=== PATIENT | male | born 1955 | race African-American/Black ===

== ENCOUNTER → 2017-11-14 | Outpatient (CLI) | payer MEDICARE ==
[~2017-11-14] MED LIST: CATAPRES 0.1MG0.1 MG PO; CELLCEPT500 MG PO; COZAAR; CYCLOSPORINE PO; CYCLOSPORINE25 M1 PO; EFFEXOR37.5 MG PO; ELAVIL50 MG PO; LANTIS SQ; LEVAQUIN 750MG750 MG PO; METOCLOPRAMIDE10 MG PO; NORVASC5 MG PO; NOVOLOG100 U/ML SC; NOVOLOG100 U/ML SQ; PHENERGAN W/CO120 ML PO; PROGRAF1 MG PO; VIT D; ZOFRAN4 MG PO
== END ==
LOC: COL.RAD 13:15
DX: M47.812 Spondylosis without myelopathy or radiculopathy, cervical region (principal)

== ENCOUNTER → 2017-11-20 | Outpatient (CLI) | payer MEDICARE | LOC: ZCOL.LAB 16:51 | DX: E11.621 Type 2 diabetes mellitus with foot ulcer (principal) ==

== ENCOUNTER → 2018-01-24 | Outpatient (CLI) | payer MEDICARE | LOC: MHCPAIN 15:28 | DX: G89.29 Other chronic pain (principal); M54.12 Radiculopathy, cervical region; M47.812 Spondylosis without myelopathy or radiculopathy, cervical region | CPT/HCPCS: G0463 ==

== ENCOUNTER → 2018-05-23 | Outpatient (CLI) | payer MEDICARE ==
[~2018-05-23] MED LIST changes: +AUGMENTIN 250 M1 TAB PO; +CARDURA 8MG TAB8 MG PO; +CIPRO 500MG TA500 MG PO; +DILAUDID 2MG TAB2 MG PO; +FOSRENOL500 MG PO; +LANTUS100 U/ML SQ; +NORVASC 10MG10 MG PO; +PROTONIX 40MG T40 MG PO; +SENSIPAR60 MG PO; +TRUSOPT OCUMETE10 ML OU; +ZOFRAN8 MG PO
== END ==
LOC: MHCPAIN 15:18
DX: G89.29 Other chronic pain (principal); M50.90 Cervical disc disorder, unspecified, unspecified cervical region; M54.12 Radiculopathy, cervical region
CPT/HCPCS: G0463

== ENCOUNTER 2018-07-11 11:59 | Day surgery (SDC) | payer MEDICARE ==
[2006-06-23 17:41] VITALS: BP 179/100
[2018-07-11] VITALS (9 sets, daily range): BP systolic 121–157; BP diastolic 43–99; PULSE 73–96; TEMP 98.3–98.9
[~2018-07-11] VITALS: Ht 165.1 cm; Wt 85.0 kg
[~2018-07-11 11:59] MED LIST changes: +LYRICA 25MG CAP25 MG PO
[2018-07-12 01:00] VITALS: BP 160/43; PULSE 85; TEMP 99.5
[2018-07-12] MEDS ORDERED: BACTRIM 400 MG-1 TAB PO (06:49)
[2018-07-12 08:02] VITALS: BP 159/83; PULSE 90; TEMP 99.1
== END 2018-07-12 09:36 | disposition home or self-care (01) ==
LOC: SDCO 11:59 → MEDICAL 17:13 → SDCO 07-12 09:36
DX: T81.30XA Disruption of wound, unspecified, initial encounter (principal); I13.2 Hypertensive heart and chronic kidney disease with heart failure and with stage 5 chronic kidney disease, or end stage renal disease; E11.22 Type 2 diabetes mellitus with diabetic chronic kidney disease; N18.6 End stage renal disease; I50.9 Heart failure, unspecified; E11.40 Type 2 diabetes mellitus with diabetic neuropathy, unspecified; I25.2 Old myocardial infarction; G47.33 Obstructive sleep apnea (adult) (pediatric); G89.29 Other chronic pain; D64.9 Anemia, unspecified; Z99.2 Dependence on renal dialysis; Z79.4 Long term (current) use of insulin; Z88.0 Allergy status to penicillin; Z88.6 Allergy status to analgesic agent; Z88.8 Allergy status to other drugs, medicaments and biological substances; Z80.9 Family history of malignant neoplasm, unspecified; Z83.3 Family history of diabetes mellitus; Z82.49 Family history of ischemic heart disease and other diseases of the circulatory system
CPT/HCPCS: OP; J1644; J1815; J2175; J2704; J7030; P9016

== ENCOUNTER 2018-08-02 09:44 | Inpatient (IN) | payer MEDICARE ==
[~2018-08-02] VITALS: Ht 165.1 cm; Wt 84.6 kg
[~2018-08-02 09:44] MED LIST changes: +BACTRIM 400 MG-1 TAB PO
[2018-08-03] VITALS (9 sets, daily range): BP systolic 135–177; BP diastolic 38–71; PULSE 71–95; TEMP 97.6–98.4
[2018-08-03 12:36] LABS: CALCIUM 9.9 mg/dL (8.4-10.2); CREATININE, serum 3.55 mg/dL (0.66-1.25)
[2018-08-04 00:40] VITALS: BP 137/98; PULSE 93; TEMP 98.1
[2018-08-04 04:00] VITALS: BP 159/54; PULSE 93; TEMP 97.6
[2018-08-04 07:33] VITALS: BP 159/59; PULSE 102; TEMP 98.4
[2018-08-04 12:41] VITALS: BP 147/60; PULSE 101; TEMP 100
[2018-08-04 16:30] VITALS: BP 156/82; PULSE 102; TEMP 98.8
[2018-08-04 18:35] LABS: MEAN CELL VOLUME 89 fl (80.0-100.0); MEAN CORPUSCULAR HGB CONC 30 g/dl (33.0-37.0); MEAN PLATELET VOLUME 9.8 fl (7.4-10.4); PLATELET COUNT 312 K/mm3 (130-400); RED BLOOD COUNT 2.79 M/mm3 (4.20-5.60); REDCELL DISTRIBUTION WIDTH-CV 17.9 % (11.5-14.5)
[2018-08-04 18:37] LABS: HEMATOCRIT 24.8 % (42.0-52.0); HEMOGLOBIN 7.4 g/dl (13.5-18.0); MEAN CORPUSCULAR HEMOGLOBIN 27 pg (27.0-31.0)
[2018-08-04 18:49] LABS: CALCIUM 8.5 mg/dL (8.4-10.2); POTASSIUM 3.6 mmol/L (3.4-5.0)
[2018-08-04 19:04] LABS: CREATININE, serum 6.43 mg/dL (0.66-1.25)
[2018-08-04 20:22] VITALS: BP 130/50; PULSE 92; TEMP 98.4
[2018-08-05 00:38] VITALS: BP 153/41; PULSE 86; TEMP 98.3
[2018-08-05 04:10] VITALS: BP 156/49; PULSE 86; TEMP 98.4
[2018-08-05 08:48] VITALS: BP 156/57; PULSE 84; TEMP 98.7
[2018-08-05 12:04] VITALS: BP 148/58; PULSE 80; TEMP 98.7
[2018-08-05 15:54] VITALS: BP 156/49; PULSE 84; TEMP 98.1
[2018-08-05 20:54] VITALS: BP 149/51; PULSE 84; TEMP 99.2
[2018-08-06 00:28] VITALS: BP 153/62; PULSE 85; TEMP 97.7
[2018-08-06 04:18] VITALS: BP 155/57; PULSE 81; TEMP 99.5
[2018-08-06 07:52] VITALS: BP 157/58; PULSE 83; TEMP 99.1
[2018-08-06] MEDS ORDERED: BACTRIM 400 MG-1 TAB PO (10:42)
[2018-08-06 12:14] VITALS: BP 151/51; PULSE 83; TEMP 99.1
[2018-08-06 13:46] LABS: CALCIUM 8.3 mg/dL (8.4-10.2); POTASSIUM 3.7 mmol/L (3.4-5.0)
[2018-08-06 14:28] LABS: CREATININE, serum 9.65 mg/dL (0.66-1.25)
== END 2018-08-06 15:00 | disposition home health service (06) | DRG 239 ==
LOC: INPTSU 08-03 11:31 → EDSTATUS 08-03 13:00 → SDCO 08-03 13:00 → SURG 08-03 13:00 → SDCO 08-03 13:30 → SURG 08-03 16:30
PROVIDERS: Internal Medicine; Nurse Anesthetist, Certified Registered; Orthopaedic Surgery
PROC: 0Y6H0Z1 Detachment at Right Lower Leg, High, Open Approach (ICD-10-PCS; principal; 2018-08-03 13:00)
DX: E11.52 Type 2 diabetes mellitus with diabetic peripheral angiopathy with gangrene (principal); N18.6 End stage renal disease; I96 Gangrene, not elsewhere classified; I12.0 Hypertensive chronic kidney disease with stage 5 chronic kidney disease or end stage renal disease; Z94.0 Kidney transplant status; E11.22 Type 2 diabetes mellitus with diabetic chronic kidney disease; Z99.2 Dependence on renal dialysis; Z79.4 Long term (current) use of insulin; D63.1 Anemia in chronic kidney disease; E83.39 Other disorders of phosphorus metabolism; Z89.432 Acquired absence of left foot
CPT/HCPCS: A9284; J0461; J0690; J1170; J1644; J1815; J2250; J2270; J2405; J2550; J2704; J2795; J3010; J7030; L1830

== ENCOUNTER 2018-09-10 12:10 | Inpatient (IN) | payer MEDICARE ==
[~2018-09-10] VITALS: Ht 165.1 cm; Wt 79.1 kg
[2018-09-10 18:30] VITALS: BP 149/77; PULSE 96; TEMP 98.3
[2018-09-10 18:38] VITALS: BP 149/77; PULSE 96; TEMP 98.3
[2018-09-10] MEDS ORDERED: RENVELA800 MG PO (19:15)
[2018-09-10] MEDS ORDERED: ULTRAM 50MG TAB50 MG PO (19:23)
[2018-09-10] MEDS ORDERED: ATIVAN 0.50.5 MG/TAB PO (19:24)
[2018-09-11 06:11] VITALS: BP 137/85; PULSE 78; TEMP 98.7
[2018-09-11 17:06] VITALS: BP 156/71; PULSE 94; TEMP 97.3
[2018-09-12 04:59] VITALS: BP 131/50; PULSE 93; TEMP 98.3
[2018-09-12 08:54] LABS: BASO # 0.1 (0.0-0.2); BASO % 1.4 % (0.0-2.0); EOS # 0.2 (0.0-0.7); EOS % 4.9 % (0-4.0); GRAN # 2.4 (1.4-6.5); LYMPH # 1.2 (1.2-3.4); LYMPH % 28.9 % (20.0-51.0); MEAN CELL VOLUME 85 fl (80.0-100.0); MEAN CORPUSCULAR HGB CONC 30 g/dl (33.0-37.0); MEAN PLATELET VOLUME 10.6 fl (7.4-10.4); MONO # 0.3 (0.1-0.6); MONO % 7.8 % (1.7-9.3); PLATELET COUNT 254 K/mm3 (130-400); RED BLOOD COUNT 3.17 M/mm3 (4.20-5.60); REDCELL DISTRIBUTION WIDTH-CV 18.8 % (11.5-14.5)
[2018-09-12 08:55] LABS: HEMATOCRIT 26.9 % (42.0-52.0); HEMOGLOBIN 8.1 g/dl (13.5-18.0); MEAN CORPUSCULAR HEMOGLOBIN 26 pg (27.0-31.0)
[2018-09-12 09:09] LABS: ALBUMIN 3.5 gm/dL (3.5-5.0); CALCIUM 9.6 mg/dL (8.4-10.2); PHOSPHOROUS 3.9 mg/dL (2.5-4.5); POTASSIUM 3.9 mmol/L (3.4-5.0)
[2018-09-12 17:43] VITALS: BP 135/42; PULSE 88; TEMP 98.7
[2018-09-13 03:23] VITALS: BP 140/59; PULSE 91; TEMP 98.6
[2018-09-13 15:17] VITALS: BP 154/48; PULSE 90; TEMP 98.4
[2018-09-14 01:20] VITALS: BP 153/58; PULSE 105; TEMP 98.9
[2018-09-14 03:45] VITALS: BP 141/61; PULSE 102
[2018-09-14 17:40] VITALS: BP 133/76; PULSE 97; TEMP 98
[2018-09-15 04:36] VITALS: BP 149/60; PULSE 95; TEMP 98.3
[2018-09-15 18:32] VITALS: BP 137/81; PULSE 99; TEMP 98.5
[2018-09-16 04:37] VITALS: BP 107/42; PULSE 86; TEMP 98.6
[2018-09-16 17:02] VITALS: BP 137/43; PULSE 84; TEMP 97.4
[2018-09-17 04:10] VITALS: BP 128/37; PULSE 93; TEMP 97.9
[2018-09-17] MEDS ORDERED: NEURONTIN100 MG/CAP PO (09:28)
[2018-09-17 18:30] VITALS: BP 106/55; PULSE 97; TEMP 98.4
== END 2018-09-17 15:50 | disposition home or self-care (01) | DRG 559 ==
PROVIDERS: Internal Medicine
PROC: 5A1D70Z Performance of Urinary Filtration, Intermittent, Less than 6 Hours Per Day (ICD-10-PCS; principal; 2018-09-12)
PROC: 5A1D70Z Performance of Urinary Filtration, Intermittent, Less than 6 Hours Per Day (ICD-10-PCS; 2018-09-14)
DX: Z47.81 Encounter for orthopedic aftercare following surgical amputation (principal); N18.6 End stage renal disease; I12.0 Hypertensive chronic kidney disease with stage 5 chronic kidney disease or end stage renal disease; Z94.0 Kidney transplant status; E11.22 Type 2 diabetes mellitus with diabetic chronic kidney disease; Z99.2 Dependence on renal dialysis; Z89.511 Acquired absence of right leg below knee; Z91.81 History of falling; Z79.4 Long term (current) use of insulin; E83.39 Other disorders of phosphorus metabolism; D63.1 Anemia in chronic kidney disease; Z89.432 Acquired absence of left foot; J45.909 Unspecified asthma, uncomplicated; E11.42 Type 2 diabetes mellitus with diabetic polyneuropathy
CPT/HCPCS: 99222-AI; 99232-AI; 99239; J1644; J1815